=== PATIENT | male | born 1965 | race African-American/Black ===

== ENCOUNTER 2023-12-28 03:55 | Emergency (ER) | payer OTHER, BC ==
[2023-12-28 04:03] VITALS: BMI 34.4
[2023-12-28] MEDS ORDERED: COLCHICINE 0.6 MG TAB ONE (04:54)
[2023-12-28] MEDS: INDOMETHACIN 50 MG CAPSULE PO ONE (05:00)
[2023-12-28] MEDS: COLCHICINE 0.6 MG CAP PO ONE (05:00)
[2023-12-28 06:11] LABS: BASO % 0.5 % (0-2.0); EOS % 0.4 % (0-4.5); HEMATOCRIT 43.7 % (35.4-49); HEMOGLOBIN 14.8 GM/dL (11.7-16.9); MCH 30.6 pg (25.7-33.7); MCHC 33.9 g/dl (32.0-35.9); MEAN CELL VOLUME 90.4 fl (80-96); MEAN PLT VOLUME 6.4 fl (7.5-11.1); NEUT % 60.1 % (42.8-82.8); PLATELET COUNT 263 10^3/uL (134-434); RBC 4.84 M/mm3 (4.00-5.60); RDW 13.2 % (11.9-15.9); WHITE BLOOD COUNT 6.1 K/mm3 (4.0-10.0)
[2023-12-28 06:34] LABS: POTASSIUM 3.8 mmol/L (3.5-5.1)
[2023-12-28 06:36] LABS: ALBUMIN 3.8 g/dl (3.4-5.0); CALCIUM 9.1 mg/dL (8.5-10.1)
[2023-12-28 06:37] LABS: BLOOD UREA NITROGEN 14.8 mg/dL (7-18)
[2023-12-28 06:39] LABS: URIC ACID 4.9 mg/dL (2.6-7.2)
[2023-12-28 06:40] LABS: CREATININE 1.2 mg/dL (0.55-1.3)
[2023-12-28 06:41] LABS: BILIRUBIN,TOTAL 0.4 mg/dL (0.2-1); TOT PROT 7.4 g/dl (6.4-8.2)
[2023-12-28 06:47] VITALS: RESP 17
[2023-12-28] MEDS: CYANOCOBALAMIN (VITAMIN B-12) 1000 MCG/1 ML VIAL IM ONE (07:49)
[2023-12-28 10:04] VITALS: BP 127/75; PULSE 56; TEMP 98.5
[2023-12-28 10:42] LABS: ERYTHROCYTE SEDIMENTATION RATE 13 mm/hr (0-20)
== END 2023-12-28 10:40 | disposition home or self-care (01) ==
LOC: JER 03:55
PROC: 3E023GC Introduction of Other Therapeutic Substance into Muscle, Percutaneous Approach (ICD-10-PCS; principal; 2023-12-28)
DX: M79.671 Pain in right foot (principal); M79.672 Pain in left foot; G89.29 Other chronic pain; M25.474 Effusion, right foot
CPT/HCPCS: 36415; 73630-TC-LT; 73630-TC-RT-FY; 80053; 84550; 85025; 85651; 86140; 86160; 93971-TC; 99285-25